=== PATIENT | male | born 1970 | race African-American/Black ===

== ENCOUNTER 2019-11-19 12:08 | Inpatient (IN) | payer OTHER ==
[~2019-11-19] VITALS: Ht 182.9 cm; Wt 85.9 kg
[2019-11-19 12:33] LABS: BASOPHILS # (AUTO) 0.04 x10^3/uL (0-0.1); BASOPHILS % (AUTO) 1 % (0-1); EOSINOPHILS # (AUTO) 0.05 x10^3/uL (0-0.4); EOSINOPHILS % (AUTO) 1 % (1-7); LYMPHOCYTES # (AUTO) 2.62 x10^3/uL (1-3.4); LYMPHOCYTES % (AUTO) 40 % (22-44); MD NO; MEAN CORPUSCULAR HEMOGLOBIN 32.5 pg (27.5-34.5); MEAN CORPUSCULAR HGB CONC 33.3 g/dL (33.2-36.2); MEAN PLATELET VOLUME 7.4 fL (7.4-10.4); MONOCYTES # (AUTO) 0.59 x10^3/uL (0.2-0.8); MONOCYTES % (AUTO) 9 % (2-9); NEUTROPHILS % (AUTO) 50 % (42-75); PLATELET COUNT 312 x10^3/uL (130-400); RED BLOOD COUNT 4.76 x10^6/uL (4.38-5.82)
[2019-11-19 12:43] LABS: ALBUMIN 3.7 g/dL (3.4-5.0); ANION GAP 8 mmol/L (5-15); CALCIUM 9.5 mg/dL (8.5-10.1); CHLORIDE 109 mmol/L (98-107); CREATININE 1.08 mg/dL (0.7-1.3)
[2019-11-19 12:47] LABS: TROPONIN I < 0.015 ng/mL (0.000-0.045)
[2019-11-19] MEDS ORDERED: SODIUM CHLORIDE FLUSH 10ML SYR IVF PRN (13:30)
--- NOTE | 2019-11-19 13:40 | NUR ---
PT AWARE OF ADMIT, PT ASSISTED INTO GOWN.
--- NOTE | 2019-11-19 13:55 | NUR ---
REPORT TO HARVEY SPEARS. PER HARVEY, ROOM IS ALMOST CLEAN, WILL CALL BACK WHEN ROOM IS READY. HOSPITALIST IN ROOM NOW .
[2019-11-19] MEDS ORDERED: ONDANSETRON ODT 4 MG PO PRN (14:30)
[2019-11-19] MEDS ORDERED: ACETAMINOPHEN 325 MG TABLET PO PRN (14:30)
[2019-11-19] MEDS ORDERED: ONDANSETRON 2MG/ML, 2ML IVPush PRN (14:30)
[2019-11-19] MEDS ORDERED: morphine SULFATE 10 MG/ML, 1ML IVPush PRN (14:30)
[2019-11-19] MEDS ORDERED: NITROGLYCERIN 0.4 MG/SPRAY SL PRN (14:30)
[2019-11-19] MEDS ORDERED: NITROGLYCERIN 0.4 MG BOTTLE (25 TABS) SL PRN (14:30)
[2019-11-19 14:47] VITALS: BP 165/100
[2019-11-19] MEDS ORDERED: INSU100V37 SC (15:01)
[2019-11-19] MEDS: ENOXAPARIN 40 MG/0.4 ML SQ SCH (15:05)
[2019-11-19] MEDS ORDERED: FLU VACC QS2020-21(6MOS UP)/PF 60MCG/0.5 ML SYR IM-VACC ONE (15:30)
[2019-11-19] MEDS: INSULIN LISPRO 100 UNITS/ML, PEN SQ-INSULIN SCH ×2 (16:00→21:00)
[2019-11-19] MEDS: NICOTINE 14MG/24 HR PATCH.TD24 TD SCH (16:38)
[2019-11-19 17:41] VITALS: BP 188/103
[2019-11-19] MEDS: ENALAPRILAT 1.25 MG/ML, 1ML IV PRN ×2 (17:49→21:19)
[2019-11-19 17:54] VITALS: BP 166/102
[2019-11-19 18:13] VITALS: BP 152/104
[2019-11-19 18:39] VITALS: BP 166/99
[2019-11-19 18:44] LABS: TROPONIN I < 0.015 ng/mL (0.000-0.045)
[2019-11-19 19:22] LABS: CLOSTRIDIUM DIFFICILE ANTIGEN POSITIVE; CLOSTRIDIUM DIFFICILE TOXIN NEGATIVE (Negative)
[2019-11-20 01:12] LABS: TROPONIN I < 0.015 ng/mL (0.000-0.045)
[2019-11-20 02:28] VITALS: BP 160/102
[2019-11-20] MEDS: ENALAPRILAT 1.25 MG/ML, 1ML IV PRN ×3 (02:30→14:16)
[2019-11-20 05:02] LABS: ALANINE AMINOTRANSFERASE 25 U/L (12-78); ALBUMIN 3.2 g/dL (3.4-5.0); ANION GAP 5 mmol/L (5-15); CALCIUM 9.2 mg/dL (8.5-10.1); CHLORIDE 112 mmol/L (98-107); CREATININE 1.02 mg/dL (0.7-1.3)
[2019-11-20 05:13] LABS: ALKALINE PHOSPHATASE 96 U/L (45-117); BILIRUBIN,TOTAL 0.5 mg/dL (0.2-1.0); CHOL/HDL RATIO 4.2; CHOLESTEROL, TOTAL 156 mg/dL (140-239); HDL CHOL % 24 % (26-37); HDL CHOLESTEROL (DIRECT) 37 mg/dL (40-60); LDL CHOLESTEROL,CALCULATED 98 mg/dL (54-169); LDL/HDL RATIO 2.6 (0.5-3.0); TOTAL PROTEIN 7.1 g/dL (6.4-8.2); TRIGLYCERIDES 105 mg/dL (50-200); VLDL CHOLESTEROL 21 mg/dL (0-25)
[2019-11-20 05:51] LABS: BASOPHILS % (AUTO) 1 % (0-1); EOSINOPHILS % (AUTO) 2 % (1-7); LYMPHOCYTES % (AUTO) 40 % (22-44); MEAN CORPUSCULAR HEMOGLOBIN 32.3 pg (27.5-34.5); MEAN CORPUSCULAR HGB CONC 33.9 g/dL (33.2-36.2); MEAN PLATELET VOLUME 7.7 fL (7.4-10.4); MONOCYTES % (AUTO) 12 % (2-9); NEUTROPHILS % (AUTO) 46 % (42-75); PLATELET COUNT 325 x10^3/uL (130-400); RED BLOOD COUNT 4.61 x10^6/uL (4.38-5.82); RED CELL DISTRIBUTION WIDTH 13.9 % (9.4-14.8)
[2019-11-20] MEDS ORDERED: ASPIRIN 325 MG TABLET PO SCH (06:00)
[2019-11-20 06:44] LABS: MD NO
[2019-11-20] MEDS: INSULIN LISPRO 100 UNITS/ML, PEN SQ-INSULIN SCH ×4 (07:00→22:49)
[2019-11-20 07:06] VITALS: BP 164/109
[2019-11-20] MEDS ORDERED: REGADENOSON 0.4 MG/5 ML SYRINGE ONE (08:53)
[2019-11-20] MEDS: CHLORTHALIDONE 25 MG TABLET PO SCH (09:39)
[2019-11-20] MEDS ORDERED: METOPROLOL SUCCINATE 25 MG TAB.ER.24H ONE (12:48)
[2019-11-20] MEDS ORDERED: LORazepam 2 MG/ML, 1ML ONE (13:22)
[2019-11-20] MEDS ORDERED: LORazepam 2 MG/ML, 1ML IVPush ONE (13:30)
[2019-11-20 14:00] VITALS: BP 177/118
[2019-11-20] MEDS: ENOXAPARIN 40 MG/0.4 ML SQ SCH (14:22)
[2019-11-20] MEDS ORDERED: LISINOPRIL 10 MG TABLET PO ONE (16:00)
[2019-11-20] MEDS: CARVEDILOL 6.25 MG TABLET PO SCH (18:03)
[2019-11-20] MEDS: NICOTINE 14MG/24 HR PATCH.TD24 TD SCH (18:16)
[2019-11-20 20:55] VITALS: BP 145/92
[2019-11-20] MEDS: ATORVASTATIN 10 MG TABLET PO SCH (21:24)
[2019-11-20] MEDS: VANCOMYCIN 50 MG/ML ORAL SUSP PO SCH (21:24)
[2019-11-21] VITALS (9 sets, daily range): BP systolic 146–182; BP diastolic 11–121
[2019-11-21] MEDS: VANCOMYCIN 50 MG/ML ORAL SUSP PO SCH ×4 (01:31→20:35)
[2019-11-21] MEDS: CARVEDILOL 6.25 MG TABLET PO SCH ×2 (05:36→16:52)
[2019-11-21] MEDS: ASPIRIN 81 MG TABLET EC PO SCH (05:36)
[2019-11-21] MEDS: INSULIN LISPRO 100 UNITS/ML, PEN SQ-INSULIN SCH ×4 (07:00→20:38)
[2019-11-21] MEDS: CHLORTHALIDONE 25 MG TABLET PO SCH (08:32)
[2019-11-21] MEDS ORDERED: LISINOPRIL 10 MG TABLET PO SCH (09:00)
[2019-11-21] MEDS: ENALAPRILAT 1.25 MG/ML, 1ML IV PRN ×3 (10:44→18:48)
[2019-11-21] MEDS ORDERED: LISI-170 PO (11:56)
[2019-11-21] MEDS ORDERED: ASPI81TA45 PO (11:56)
[2019-11-21] MEDS ORDERED: ATOR10TA9 PO (11:56)
[2019-11-21] MEDS ORDERED: CARV6.2512 PO (11:56)
[2019-11-21] MEDS ORDERED: VANC1VIA3 PO (11:56)
[2019-11-21] MEDS ORDERED: AMLODIPINE 5 MG TABLET PO ONE (14:30)
[2019-11-21] MEDS ORDERED: AMLODIPINE 5 MG TABLET ONE (14:33)
[2019-11-21] MEDS: NICOTINE 14MG/24 HR PATCH.TD24 TD SCH (16:50)
[2019-11-21] MEDS: ENOXAPARIN 40 MG/0.4 ML SQ SCH (16:52)
[2019-11-21] MEDS: ATORVASTATIN 10 MG TABLET PO SCH (20:36)
[2019-11-21] MEDS: ENALAPRILAT 1.25 MG/ML, 2ML IV PRN (21:17)
[2019-11-22] VITALS (10 sets, daily range): BP systolic 133–166; BP diastolic 85–115
[2019-11-22] MEDS ORDERED: ENALAPRILAT 1.25 MG/ML, 1ML IV PRN
[2019-11-22] MEDS: VANCOMYCIN 50 MG/ML ORAL SUSP PO SCH ×4 (01:43→21:11)
[2019-11-22] MEDS: ASPIRIN 81 MG TABLET EC PO SCH (05:28)
[2019-11-22] MEDS: CARVEDILOL 6.25 MG TABLET PO SCH ×2 (08:05→17:29)
[2019-11-22] MEDS: INSULIN LISPRO 100 UNITS/ML, PEN SQ-INSULIN SCH ×4 (08:05→22:00)
[2019-11-22] MEDS: LISINOPRIL 20 MG TABLET PO SCH (08:06)
[2019-11-22] MEDS ORDERED: AMLODIPINE 5 MG TABLET PO SCH (09:00)
[2019-11-22] MEDS ORDERED: ENALAPRILAT 1.25 MG/ML, 1ML ONE (11:29)
[2019-11-22] MEDS: ENALAPRILAT 1.25 MG/ML, 2ML IV PRN (11:38)
[2019-11-22] MEDS: ENOXAPARIN 40 MG/0.4 ML SQ SCH (14:30)
[2019-11-22] MEDS: NICOTINE 14MG/24 HR PATCH.TD24 TD SCH (16:33)
[2019-11-22] MEDS: ATORVASTATIN 10 MG TABLET PO SCH (21:11)
[2019-11-22] MEDS: AMLODIPINE 5 MG TABLET PO SCH (21:11)
[2019-11-23 01:25] VITALS: BP 134/88
[2019-11-23] MEDS: VANCOMYCIN 50 MG/ML ORAL SUSP PO SCH ×4 (01:27→20:27)
[2019-11-23] MEDS: ASPIRIN 81 MG TABLET EC PO SCH (06:41)
[2019-11-23] MEDS: CARVEDILOL 6.25 MG TABLET PO SCH ×2 (06:41→17:48)
[2019-11-23] MEDS: INSULIN LISPRO 100 UNITS/ML, PEN SQ-INSULIN SCH ×4 (07:56→20:26)
[2019-11-23 08:01] VITALS: BP 161/105
[2019-11-23] MEDS: LISINOPRIL 20 MG TABLET PO SCH (08:05)
[2019-11-23] MEDS: AMLODIPINE 5 MG TABLET PO SCH ×2 (08:05→20:27)
[2019-11-23] MEDS: ENOXAPARIN 40 MG/0.4 ML SQ SCH (14:17)
[2019-11-23 14:18] VITALS: BP_SYST 159; BP_SYST 171; BP_DIAS 107; BP_DIAS 116
[2019-11-23] MEDS: NICOTINE 14MG/24 HR PATCH.TD24 TD SCH (16:44)
[2019-11-23 17:49] VITALS: BP 154/98
[2019-11-23 20:12] VITALS: BP 151/99
[2019-11-23] MEDS: ATORVASTATIN 10 MG TABLET PO SCH (20:27)
[2019-11-24] MEDS: VANCOMYCIN 50 MG/ML ORAL SUSP PO SCH ×4 (02:15→20:56)
[2019-11-24 02:23] VITALS: BP 124/82
[2019-11-24 05:29] LABS: BASOPHILS % (AUTO) 1 % (0-1); EOSINOPHILS % (AUTO) 4 % (1-7); LYMPHOCYTES % (AUTO) 45 % (22-44); MEAN CORPUSCULAR HGB CONC 34.3 g/dL (33.2-36.2); MEAN PLATELET VOLUME 7.5 fL (7.4-10.4); MONOCYTES % (AUTO) 12 % (2-9); NEUTROPHILS % (AUTO) 39 % (42-75); PLATELET COUNT 360 x10^3/uL (130-400); RED BLOOD COUNT 4.91 x10^6/uL (4.38-5.82); RED CELL DISTRIBUTION WIDTH 14.1 % (9.4-14.8)
[2019-11-24 05:38] LABS: ALBUMIN 3.5 g/dL (3.4-5.0); ANION GAP 6 mmol/L (5-15); CALCIUM 9.3 mg/dL (8.5-10.1); CHLORIDE 105 mmol/L (98-107)
[2019-11-24 05:43] LABS: ALANINE AMINOTRANSFERASE 28 U/L (12-78); ALKALINE PHOSPHATASE 106 U/L (45-117); BILIRUBIN,TOTAL 0.4 mg/dL (0.2-1.0); CREATININE 1.24 mg/dL (0.7-1.3); TOTAL PROTEIN 7.7 g/dL (6.4-8.2)
[2019-11-24] MEDS: CARVEDILOL 6.25 MG TABLET PO SCH ×2 (05:52→18:36)
[2019-11-24] MEDS: ASPIRIN 81 MG TABLET EC PO SCH (05:52)
[2019-11-24 06:05] LABS: MD NO
[2019-11-24 07:23] VITALS: BP 160/91
[2019-11-24] MEDS ORDERED: HYDR-3341 PO (08:22)
[2019-11-24 08:44] VITALS: BP 171/118
[2019-11-24] MEDS: AMLODIPINE 5 MG TABLET PO SCH ×2 (09:18→20:55)
[2019-11-24] MEDS: INSULIN LISPRO 100 UNITS/ML, PEN SQ-INSULIN SCH ×4 (09:20→20:56)
[2019-11-24] MEDS: LISINOPRIL 20 MG TABLET PO SCH (09:22)
[2019-11-24 13:03] VITALS: BP 157/104
[2019-11-24] MEDS: ENOXAPARIN 40 MG/0.4 ML SQ SCH (14:30)
[2019-11-24] MEDS: NICOTINE 14MG/24 HR PATCH.TD24 TD SCH (15:56)
[2019-11-24 16:03] VITALS: BP 142/90
[2019-11-24 20:14] VITALS: BP 137/91
[2019-11-24] MEDS: ATORVASTATIN 10 MG TABLET PO SCH (20:56)
[2019-11-25] MEDS: VANCOMYCIN 50 MG/ML ORAL SUSP PO SCH ×3 (01:49→14:07)
[2019-11-25 01:51] VITALS: BP 137/85
[2019-11-25 05:45] VITALS: BP 147/102
[2019-11-25] MEDS: ASPIRIN 81 MG TABLET EC PO SCH (05:48)
[2019-11-25] MEDS: CARVEDILOL 6.25 MG TABLET PO SCH (05:48)
[2019-11-25] MEDS: INSULIN LISPRO 100 UNITS/ML, PEN SQ-INSULIN SCH ×2 (07:00→11:18)
[2019-11-25 08:10] VITALS: BP 155/104
[2019-11-25 09:41] VITALS: BP 155/109
[2019-11-25] MEDS: AMLODIPINE 5 MG TABLET PO SCH (09:43)
[2019-11-25] MEDS: LISINOPRIL 20 MG TABLET PO SCH (09:43)
[2019-11-25] MEDS ORDERED: VANC125C11 PO (12:50)
== END 2019-11-25 14:26 | disposition short-term general hospital (02) | DRG 311 ==
LOC: ED 12:26 → EDIP 13:12 → EDBD 13:12 → 5SO 14:32
PROVIDERS: ADMIT Family Medicine; ATTEND Hospitalist
DX: I20.0 Unstable angina (principal); A04.72 Enterocolitis due to Clostridium difficile, not specified as recurrent; I50.40 Unspecified combined systolic (congestive) and diastolic (congestive) heart failure; E11.9 Type 2 diabetes mellitus without complications; R94.31 Abnormal electrocardiogram [ECG] [EKG]; F17.200 Nicotine dependence, unspecified, uncomplicated; I11.0 Hypertensive heart disease with heart failure; E78.5 Hyperlipidemia, unspecified; Z72.89 Other problems related to lifestyle; Z82.49 Family history of ischemic heart disease and other diseases of the circulatory system; Z83.3 Family history of diabetes mellitus
CPT/HCPCS: 36415; 99285; J3370; 71045; 78452; 80048; 80053; 80061; 82040; 82962; 83036; 84443; 84484; 85025; 87324; 87493; 90686; 93005; 93017; 93306; 93356; G0378; J1650; J2785; A9502; J1815; J2060